=== PATIENT | male | born 2000 | race Caucasian/White ===

== ENCOUNTER 2023-04-04 12:39 | Emergency (ER) | payer SELFPAY ==
[~2023-04-04] VITALS: Ht 147.3 cm; Wt 96.2 kg
[~2023-04-04 12:39] MED LIST: ASTELIN NASA137 MCG; FLONASE0.05 %; NO; SINGULAIR5 MG OR; ZOFRAN ODT4 MG OR
[2023-04-04 14:16] LABS: BASO% 0.7 % (0-3); EOS% 2.8 % (0-8); HEMATOCRIT 45.3 % (39.0-50.0); HEMOGLOBIN 14.5 g/dl (14.0-18.0); IMMATURE GRANULOCYTES 0.1 % (0.0-5.0); LYMPH% 25.9 % (15-41); MEAN CELL VOLUME 82.2 fL CALC (80.0-100.0); MEAN CORPUSCULAR HGB 26.3 pG CALC (26.0-32.0); MONO% 7.9 % (2-13); NEUT# 4.7 thou/uL (1.82-7.42); NEUT% 62.6 % (42-76); RED BLOOD COUNT 5.51 mill/uL (4.70-6.10); RED CELL DISTRI WIDTH 14.3 % (11.5-15.5)
[2023-04-04 14:18] LABS: ALBUMIN 4.7 g/dL (3.2-5.0); AMYLASE 82 u/l (30-110); ANION GAP 13 (6-22 (CALC)); BUN 11 mg/dL (9-20); BUN/CREATININE RATIO 19 (12-20 (CALC)); CARBON DIOXIDE 24 mmol/l (22-30); CHLORIDE 107 mmol/l (95-108); CREATININE 0.6 mg/dL (0.7-1.3); GFR FOR AFR.AMER. > 60 ML/MIN (>=60 (CALC)); GFR OTHER RACES > 60 ML/MIN (>=60 (CALC)); LIPASE 44 u/l (23-300); POTASSIUM 4.2 mmol/l (3.5-5.1); SGOT/AST 39 u/l (17-59); SODIUM 140 mmol/l (137-146); TOTAL PROTEIN 8.1 g/dL (6.3-8.2)
[2023-04-04 14:19] LABS: ALKALINE PHOSPHATASE 90 u/l (38-126); BILIRUBIN, TOTAL 0.6 mg/dL (0.2-1.3)
[2023-04-04 15:35] LABS: URINE BILIRUBIN - DIPSTICK NEGATIVE (NEGATIVE); URINE BLOOD DIPSTICK NEGATIVE (NEGATIVE); URINE COLOR YELLOW; URINE GLUCOSE - DIPSTICK NEGATIVE (NEGATIVE); URINE KETONE NEGATIVE (NEGATIVE); URINE LEUK ESTERASE NEGATIVE (NEGATIVE); URINE PROTEIN - DIPSTICK NEGATIVE (NEG-TRACE); URINE UROBILINOGEN - DIPSTICK 0.2 E.U./dL (0.2)
[2023-04-04 15:38] LABS: URINE NITRITE - DIPSTICK NEGATIVE (Negative)
[2023-04-04 16:45] VITALS: BP 140/87
== END 2023-04-04 16:51 | disposition home or self-care (01) | DRG 392 ==
LOC: ED 12:39
PROVIDERS: Family Medicine
DX: R10.11 Right upper quadrant pain (principal)